=== PATIENT | male | born 1960 | race Two or more races ===

== ENCOUNTER 2024-02-23 13:49 | Outpatient (AMB) | payer OTHER, SELFPAY ==
--- NOTE | 2024-02-23 13:51 | MHC.OFFVIS ---
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 He is a patient of . He is seen for the following urologic conditions - elevated PSA - left testicular pain Free and total PSA was checked by PCP Based on low free PSA % recommend prostate biopsy PSA 01/03 9 11% Left testicle Examined Pain is in groin at rectus insertion Reassurance provided [facility] Medical History (Updated 02/23/24 @ 14:12 by Rock Martin MD) Left testicular pain BPH associated with nocturia Mixed hyperlipidemia HTN (hypertension) Family History Other Diabetes mellitus HTN (hypertension) Kidney disease Social History Alcohol intake: never Patient Tobacco Use Status: Never used Tobacco Review of Systems Const Denies chills and Denies fever(s) Card Reports no additional complaints and Denies syncope Resp Denies cough GI Denies abdominal pain and Denies heartburn Reports as per HPI and Denies change in libido Neuro Denies syncope Psych Denies change in libido Endo Denies change in libido Physical Exam Const General: cooperative, healthy appearing, comfortable and no acute distress Orientation/consciousness: patient oriented x3 HEENT Face and sinus: Yes normal facial exam Mouth: moist mucous membranes Neck Neck: Yes normal visual inspection, Yes full ROM and Yes trachea midline Chest Chest palpation & inspection: normal inspection of the chest Resp Effort & Inspection: normal respiratory effort, able to speak in complete sentences and no respiratory distress GI Inspection: Yes normal to inspection Back/Spine/Pelvis Cervical Spine: normal cervical lordosis Thoracic/Lumbar Spine: thoracic and lumbar spine normal to inspection Skin General skin exam: no rashes or lesions noted Neuro General: patient oriented x3, gait normal, tone normal and moves all extremities Extrem General: Yes normal to inspection and Yes capillary refill normal Assessment & Plan Assessment & Plan (1) Elevated PSA: Code(s): R97.20 - Elevated prostate specific antigen [PSA] Category: Medical (2) Left testicular pain: Code(s): N50.812 - Left testicular pain Category: Medical Plan Risks and benefits regarding trans rectal ultrasound with prostate biopsy were discussed. Options of continued surveillance, no treatment and biopsy were offered. The risks include but are not limited to, urinary tract infection, sepsis, difficulty urinating, bleeding into the rectum or bladder that requires intervention and transfusion,and failure to diagnose prostate cancer. The patient understands the options and the risks involved. They wish to proceed. Printed information was provided to ensure he remains off anticoagulation for the appropriate length of time. He may require cardiology or PCP clearance. An antibiotic will be administered prior to, and following the procedure Medications: New ciprofloxacin HCl Take tablets day before, day of and day after biopsy 250 mg PO ONCE 3 days 3 tabs 0RF R97.20 - Elevated prostate specific antigen [PSA] Patient Instructions: Imaging studies, laboratory and physical exam results were discussed and reviewed in detail. No major barriers to patient understanding were identified. An opportunity to ask questions regarding the treatment plan was provided. All questions were answered. The patient expressed understanding and agreement with the above treatment plan. The patient is aware they should contact our office by phone for worsening of their current condition or the appearance of new urologic symptoms. Compliance is encouraged with any medications and followup testing that is ordered. It is a privilege to participate in the urologic care of your patient. If you have any questions or concerns regarding treatment for the above conditions, or other urologic issues, please do not hesitate to contact me. The office telephone contact is [phone]. This note is constructed using voice recognition software. While every effort has been made to ensure accuracy entry level staff accountant errors may have been included. Yours sincerely, Dr Rock Martin MD, [facility] - Urology Providers of Expert, Compassionate Care for the Genitourinary System Coding Level of Care Code New Pt Level 4 (94144) Diagnoses Elevated PSA R97.20 Left testicular pain N50.812
== END 2024-02-23 14:13 | disposition home or self-care (01) ==
PROVIDERS: PCP Nurse Practitioner Family; Visit Provider Urology
DX: R97.20 Elevated prostate specific antigen [PSA] (principal); N50.812 Left testicular pain
CPT/HCPCS: 99204

== ENCOUNTER → 2024-02-23 13:49 | Outpatient (BNVA) | payer OTHER, SELFPAY | PROVIDERS: PCP Nurse Practitioner Family; Visit Provider Urology | DX: R97.20 Elevated prostate specific antigen [PSA] (principal); N50.812 Left testicular pain | CPT/HCPCS: 99202 ==

== ENCOUNTER 2024-03-15 07:41 | Outpatient (REF) | payer OTHER, SELFPAY ==
[2024-03-15] MEDS: Lidocaine HCl 1 % MPF 5 ML VIAL 10 ML SUBCUT (09:12)
--- NOTE | 2024-03-15 13:52 | P.OP_ITS ---
Operative Note Operative Note Date of Service: 03/15/24 Narrative: Preoperative diagnosis: Elevated PSA Postoperative diagnosis: Elevated PSA Procedure: 1. transrectal ultrasound measurement of prostate 2. transrectal ultrasound-guided pudendal nerve block 3. transrectal ultrasound-guided prostate biopsy 12 core Surgeon: Dr. Rock Martin Anesthetic: 10cc 1% lidocaine Indications for procedure: Elevated PSA Counselling: Technical aspects, risks and benefits of proposed procedure were discussed in full. All questions have been answered, written consent has been obtained and patient agrees to proceed. Procedure: The patient was brought into the procedure area and placed in a left lateral decubitus position. Patient identity confirmed. Perioperative antibiotics confirmed. Safety pause time out performed. KLEBER was performed to dilate rectal sphincter Iodine 10cc with 60 cc gel was placed per rectum to reduce infection risk using a catheter tip syringe. 8 Hz Nicole rectal end-fire ultrasound probe was placed transrectally without difficulty. The prostate was visualized. Seminal vesicles were normal. Prostate margins were clearly demarcated. Bladder was seen superiorly. No cystic structures were noted Small calcifications were noted at the surgical margin The prostate was otherwise heterogenous in nature The prostate was measured in 3 dimensions Prostatic Width: 5.6 cm Prostatic Height: 4.2 cm Urethral Length: 4.6 cm Total volume equals : 60 ml An ultrasound-guided pudendal nerve block was performed using a 22 gauge spinal needle in the sagittal plane. 4 cc of 1% lidocaine placed at the junction of each seminal vesicle and 2 cc placed at the apex of the prostate. A 12 core biopsy was performed with 6 cores each side using an 18 gauge prostate biopsy gun. Two cores each were taken at the prostate apex, mid and base on each side. Cores were spaced between lateral and medial aspects. Each core was examined as placed on specimen foam as part of fiberglass quality technician to ensure a minimum 1 cm of length and minimal discontinuity. He tolerated the procedure well with minimal rectal bleeding. Blood pressure remained stable following procedure. He was able to ambulate to bathroom after 5 minutes. Printed instructions regarding antibiotic use and common adverse events from the procedure such as low-grade temperature, potential infection and bleeding were given. He understands to call the office or go to an emergency room should any of these events arise. Pathology: 12 core prostate biopsy. CPT code 55517: Transrectal ultrasound; this is a diagnostic test for evaluation of the prostate and surrounding structures, looking for abnormalities or suspicious areas worrisome for cancer CPT code 65107: Biopsy, prostate; needle or punch, single or multiple, any approach CPT code 09391: Ultrasonic guidance for needle placement (eg, biopsy, aspiration, injection, localization device), imaging supervision and interpretation
== END 2024-03-15 07:42 | disposition home or self-care (01) ==
LOC: HO.US 07:41
PROVIDERS: PCP Nurse Practitioner Family; Visit Provider Urology
DX: R97.20 Elevated prostate specific antigen [PSA] (principal)
CPT/HCPCS: 55700; 76942; 88305; J2003

== ENCOUNTER → 2024-03-15 07:41 | Outpatient (BNV) | payer OTHER, SELFPAY | PROVIDERS: PCP Nurse Practitioner Family; Visit Provider Urology | DX: R97.20 Elevated prostate specific antigen [PSA] (principal) | CPT/HCPCS: 55700; 76872; 76942 ==

== ENCOUNTER 2024-04-04 14:33 | Outpatient (AMB) | payer OTHER, SELFPAY ==
--- NOTE | 2024-04-04 14:34 | A.OFFVIS_ITS ---
Intake Visit Reasons: Prostate biopsy results Intake Note: Patient is present for Telephone Biopsy Results Urology Med:None Antibiotic Allergy:None Blood Thinner:None Last PSA: 01/25/2024 PSA: 9.0 Logistics Operations Manager Required: Yes Logistics Operations Manager Language: Farm Products Shipper Services: Logistics Operations Manager Present Accompanied by: Self / Same As Patient Allergies No Known Allergies Allergy (Verified 04/04/24 14:34) HPI Comments Details: Umair is a Congolese-speaking male. He is a patient of . He is seen for the following urologic conditions - elevated PSA - left testicular pain Telemedicine Evaluation 15 min Consultation [employer] Jorgito Video Free and total PSA was checked by PCP Based on low free PSA % recommend prostate biopsy PSA 01/03 9 11% Prostate Biopsy 04/05 No cancer found Start finasteride 6m f/u labs Left testicle Examined Pain is in groin at rectus insertion Reassurance provided COUNT INCLUDES [facility] Medical History (Updated 04/04/24 @ 14:55 by Rock Martin MD) Left testicular pain BPH associated with nocturia Mixed hyperlipidemia HTN (hypertension) Family History Other Diabetes mellitus HTN (hypertension) Kidney disease Social History Alcohol intake: never Patient Tobacco Use Status: Never used Tobacco Review of Systems Const All systems reviewed & are unremarkable except as noted in HPI and below Reports no additional complaints Resp Reports no additional complaints GI Reports no additional complaints Reports as per HPI Musc Reports no additional complaints Physical Exam Telemedicine evaluation Appropriate responses Regular breathing rate and rhythm HEENT Head: Yes normal to inspection Ears: hearing grossly normal bilaterally Eyes General: appearance normal, both eyes and all related structures Neck Neck: Yes normal visual inspection Chest Chest palpation & inspection: normal inspection of the chest Resp Effort & Inspection: normal respiratory effort and able to speak in complete sentences Telehealth Telehealth Telehealth Platform: [employer] Location of provider rendering services: practice address Location of patient: address on file Patient Identification confirmed using: Name, : Yes Telehealth method: video Patient verbally consented to treatment: Yes Patient verbally consented to billing insurance company: Yes Patient informed of any privacy concerns related to visit: Yes Minutes spent on Phone/Video with Pt.: 15 Assessment & Plan Assessment & Plan (1) Elevated PSA: Code(s): R97.20 - Elevated prostate specific antigen [PSA] Category: Medical (2) BPH associated with nocturia: Code(s): N40.1 - Benign prostatic hyperplasia with lower urinary tract symptoms; R35.1 - Nocturia Category: Medical Plan Start finasteride Six-month follow-up Orders: Orders PSA,Total (Free>4and<10) 6 Months R97.20 - Elevated prostate specific antigen [PSA] Medications: New finasteride 5 mg PO DAILY 90 days 90 tabs 1RF N13.8 - Other obstructive and reflux uropathy, N40.1 - Benign prostatic hyperplasia with lower urinary tract symptoms, R33.9 - Retention of urine, unspecified, R97.20 - Elevated prostate specific antigen [PSA] Patient Instructions: Imaging studies, laboratory and physical exam results were discussed and reviewed in detail. No major barriers to patient understanding were identified. An opportunity to ask questions regarding the treatment plan was provided. All questions were answered. The patient expressed understanding and agreement with the above treatment plan. The patient is aware they should contact our office by phone for worsening of their current condition or the appearance of new urologic symptoms. Compliance is encouraged with any medications and followup testing that is ordered. It is a privilege to participate in the urologic care of your patient. If you have any questions or concerns regarding treatment for the above conditions, or other urologic issues, please do not hesitate to contact me. The office telephone contact is [phone]. This note is constructed using voice recognition software. While every effort has been made to ensure accuracy gas scrubber operator errors may have been included. Yours sincerely, Dr Rock Martin MD, [facility] - Urology Providers of Expert, Compassionate Care for the Genitourinary System Coding Level of Care Code Tele Est Pt Level 4 (06442) Diagnoses Elevated PSA R97.20 BPH associated with nocturia N40.1; R35.1
== END 2024-04-04 15:02 | disposition home or self-care (01) ==
LOC: HO.HUSH 14:33
PROVIDERS: PCP Nurse Practitioner Family; Visit Provider Urology
DX: R97.20 Elevated prostate specific antigen [PSA] (principal); N40.1 Benign prostatic hyperplasia with lower urinary tract symptoms; R35.1 Nocturia
CPT/HCPCS: 99214

== ENCOUNTER → 2024-04-04 14:33 | Outpatient (BNVA) | payer OTHER, SELFPAY | PROVIDERS: PCP Nurse Practitioner Family; Visit Provider Urology ==

== ENCOUNTER 2024-10-22 09:02 | Outpatient (REF) | payer OTHER, SELFPAY ==
--- OUTSIDE RECORDS SUMMARY | 2024-10-22 09:10 | XMS_ITS | Clinical Summary ---
Author Organization [facility] Address [address] [place] [address] Care Team Providers Care Welfare Eligibility Worker Name Role Phone Tiffanie Garces [facility] Primary Care Provider [phone] Source Comments PLEASE NOTE, if this patient is a minor, it may be UNLAWFUL to discuss sensitive information that is contained in these records (such as FAMILY PLANNING, MENTAL HEALTH or SUBSTANCE ABUSE) with the minor patient's parent or other person without the patient's specific authorization.[facility] Allergies No known active allergies Medications triamcinolone (KENALOG) 0.1 % ointmentIndication s:Seborrheic keratosis Apply topically 2 (two) times daily To scalp. 30 g 1 4 Active tamsulosin (FLOMAX) 0.4 mg 24 hr capsule Take 1 Capsule by mouth once daily 90 Capsule 4 Active atorvastatin (LIPITOR) 80 mg tabletIndications: Mixed hyperlipidemia Take 1 Tablet by mouth once daily 90 Tablet 4 Active bisoprolol fumarate (ZEBETA) 10 mg tabletIndications: Essential hypertension TAKE ONE TABLET BY MOUTH EVERY DAY 90 Tablet 1 4 Active amLODIPine (NORVASC) 10 mg tabletIndications: Essential hypertension TAKE ONE TABLET BY MOUTH EVERY DAY 30 Tablet 5 Active Active Problems Problem Noted Date Diagnosed Date Benign prostatic hyperplasia with nocturia 08/27 Primary osteoarthritis of both hands 08/27/2022 Class 1 obesity due to exces s calories with serious comorbidity and body mass index (BMI) of 32.0 to 32.9 in adult 08/27/2022 Essential hypertension 09/28/2018 Chronic left-sided low back pain without sciatic a 09/28/2018 Combined hyperlipidemia 09/28/2018 Immunizations Immunization Administration Dates Next Due MODERNA COVID-19 VACCINE BIV ALENT, BLUE CAP, 6M+ 08/27/2022 Moderna COVID-19 Vaccine, re d cap blue label, 12+ Primary Series 05/26/2021,10/20/2020,09/20/2020 TDAP 01/25/2024 ZOSTER VACCINE, RECOMBINANT (SHINGRIX) 3,08/27/2022 Family History Medical History Relation Name Comments Diabetes Brother Kidney disease Father No Known Problems Maternal Grandfather No Known Problems Maternal Grandmother Hypertension Mother No Known Problems Paternal Grandfather No Known Problems Paternal Grandmother Relation Name Status Comments Brother Alive Father Maternal Grandfather Maternal Grandmother Mother Alive Paternal Grandfather Paternal Grandmother Sister Alive Social History Tobacco Use Types Packs/Day Years Used Date Smoking Tobacco: Never Smokeless Tobacco: Never Tobacco Cessation:Counseling Given: Yes Alcohol Use Standard Drinks/Week Comments No 0 (1 standard drink = 0.6 oz pur e alcohol) Social Connections Answer Date Recorded Connectedness 0 02/24/2024 Financial Resource Strain Answer Date R ecorded Financial Resource Strain 0 2018 Stress Answer Date Recorded Stress 0 02/05/2019 Physical Activity Answer Date Recorded Physical Activity 0 02/05/2019 Food Insecurity Answer Date Recorded Food 0 03/08/2024 Transportation Needs Answer Date Record ed Transportation 0 02/05/2019 Housing Stability Answer Date Recorded Housing 0 02/05/2019 Safety and Environment Answer Date Jasvir rded Safety 0 02/05/2019 Utilities Answer Date Recorded Utilities 0 02/05/2019 Employment Answer Date Recorded Stress 0 02/24/2024 Sex and Gender Information Value Date Recorded Sex Assigned at Male 09/26/2018 10:55 AM PDT Legal Sex Male 6:57 AM PST Gender Identity Male 09/26/2018 10:55 AM PDT Sexual Orientation Straight 09/26/2018 10 :55 AM PDT 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 on file Not on file Not on file Last Filed Vital Signs Vital Sign Reading Time Taken Comments Blood Pressure 131/79 07/18/2024 1:05 PM EST Pulse 75 07/18/2024 1:05 PM EST Temperature 36.9 ??C (98.4 ??F) 01/25/2024 4:11 PM ED T Respiratory Rate 16 01/25/2024 4:11 PM EDT Oxygen Saturation 98% 01/25/2024 4:11 PM EDT Inhaled Oxygen Concentration - - Weight 82.1 kg (181 lb) 01/25/2024 4:11 PM EDT Height 157.5 cm (5' 2 ) 01/25/2024 4:11 PM EDT Body Mass Index 33.11 01/25/2024 4:11 PM EDT Plan of Treatment Upcoming Encounters Date Type Department Care Team (Late st Contact Info) Description 11/12/2024 9:00 AM EDT Office Visit [address] [phone] Suzanne Walker, [facility] [address] [place] [address] Health Maintenance Due Date Last Done Comments Anxiety Screening [address] CT Colonography 2006 Fecal DNA 2006 Flexible Sigmoidoscopy 2006 FIT/gFOBT 02/17/2020 02/16/2019 [id number]-31 ( season) 2024 08/27/2022, 05/26/2021, 10/20/2020, Additional history exists Imm-Influenza (#1) 2024 Alcohol and Drug Screen 06/13/2024 01/25/20 24, 08/27/2022, 09/26/2018 Depression Annual Screen 06/13/2024 01/25/2024 Annual Preventive Care Visit 01/24/2025 01/25/2024, 09/26/2018 Diabetes Screening 01/24/2025 01/25/2024, 0 01/25/2024, 08/27/2022, Additional history exists Lipid Screening 01/24/2025 01/25/2024, 08/11, 06/11/2020, Additional history exists Tobacco Screening 01/24/2025 01/25/2024 Dental BW 04/28/2025 04/26/2024 Dental Examination 04/28/2025 04/26/2024 Dental Prophy 04/28/2025 04/26/2024 Dental Perio Charting 07/20/2025 07/18/2024, 024 Dental FMX/Pano 04/28/2029 04/26/2024 Imm-DTaP/Tdap/Td (2 - Td or Tdap) 01/24/2034 024 Colonoscopy 07/05/2034 07/05/2024 Colorectal Cancer Screening 07/05/2034 HIV Screening Completed 09/29/2018 Hepatitis C Screening Completed 09/29/2018 Imm-Zoster, Recombinant Completed 10/28/2022, 08/27 Procedures Procedure Name Priority Date/Time Associated Diagnosis Comments HISTORIC COLONOSCOPY 07/05/2024 3:00 AM EST COMP PERIODONTAL EVALUATION - NEW/EST PATIENT Routine 04/26/2024 1:00 PM EST Encounter for dental examination INTRAORAL - COMP SERIES OF RADIOGRAPHIC IMAGES Routine 04/26/2024 1:00 PM EST Encounter for dental examination PROPHYLAXIS - ADULT Routine 04/26/2024 1 :00 PM EST Encounter for dental examination PERIODIC ORAL EVALUATION ESTABLISHED PATIENT Routine 04/26/2024 1:00 PM EST Encounter for dental examination COMPREHENSIVE METABOLIC PANEL Routine 01/25/2024 4:50 PM EDT Routine general medical examination at a health care facility Essential hypertension Combined hyperlipidemia Benign prostatic hyperplasia with nocturia LIPID PANEL Routine 01/25/2024 4:50 PM EDT Routine general medical examination at a health care facility Essential hypertension Combined hyperlipidemia Benign prostatic hyperplasia with nocturia FECAL OCCULT BLOOD HEMOCCULT X3, CHRIS YASH (POCT) Routine 02/16/2019 3:27 PM EDT Essential hypertension ANTIBODY HIV-1&HIV-2 SINGLE RESULT Routine 09/29/2018 8:55 AM EDT Routine general medical examination at a health care facility HEPATITIS A,B,C PANEL Routine 09/29/2018 8:55 AM EDT Routine general medical examination at a health care facility from Last 3 Months or Most Recently Relevant to Health Maintenance Results * HISTORIC COLONOSCOPY (07/05/2024 3:00 AM EST) 07/05/2024 3:00 AM EST Tiffanie Garces [facility] LAT[facility] OPERATOR PROCEDURES Final Result * (ABNORMAL) LIPID PANEL (01/25/2024 4:50 PM EDT) CHOLESTEROL, TOTAL 192 <200 mg/dL [facility] HDL CHOLESTEROL 43 > OR = 40 mg/dL [facility] TRIGLYCERIDES 91 <150 mg/dL [facility] LDL-CHOLESTEROL 130(H) 99 mg/dL (calc) [facility] Comment: Reference range: <100 Desirable range <100 mg/dL for primary prevention; ?? <70 mg/dL for patients with CHD or diabetic patients with > or = 2 CHD risk factors. LDL-C is now calculated using the Zeyad calculation, which is a validated novel method providing better accuracy than the Friedewald equation in the estimation of LDL-C. Ryan SS et al. ABIMAEL. 2013;310(19): 5016-6211 (http://education.Scrip-t/faq/ZDT823) CHOL/HDLC RATIO 4.5 <5.0 (calc) [facility] NON-HDL CHOLESTEROL 149(H) <130 mg/dL (calc) [facility] Comment: For patients with diabetes plus 1 major ASCVD risk factor, treating to a non-HDL-C goal of <100 mg/dL (LDL-C of <70 mg/dL) is considered a therapeutic option. Blood Blood / Unknown 01/25/2024 4 :50 PM EDT 01/25/2024 4:51 PM EDT Narrative [facility] - 01/27/2024 8:32 AM EDT SPECIMEN COLLECTED AT PROVIDER OFFICE. us Tiffanie Garces [facility] LAB - BLOOD DRAW Final Result [facility] [address] [place] [id number], [facility] [address] [address] * (ABNORMAL) COMPREHENSIVE METABOLIC PANEL (01/25/2024 4:50 PM EDT) GLUCOSE 101(H) 65 - 99 mg/dL [facility] Comment: ?Fasting reference interval For someone without known diabetes, a glucose value between 100 and 125 mg/dL is consistent with prediabetes and should be confirmed with a follow-up test. UREA NITROGEN (BUN) 12 7 - 25 mg/dL [facility] CREATININE (blood) 0.93 0.70 - 1.35 mg/dL [facility] EGFR 93 > OR = 60 mL/min/1. 73m2 [facility] BUN/CREATININE RATIO SEE NOTE: [facility] Comment: ?? Not Reported: BUN and Creatinine are within ?? reference range. ? SODIUM 140 135 - 146 mmol/L [facility] POTASSIUM 3.7 3.5 - 5.3 mmol/L [facility] CHLORIDE 104 98 - 110 mmol/L [facility] CARBON DIOXIDE 28 20 - 32 mmol/L [facility] CALCIUM 9.8 8.6 - 10.3 mg/dL [facility] PROTEIN, TOTAL 7.6 6.1 - 8.1 g/dL [facility] ALBUMIN 4.1 3.6 - 5.1 g/dL [facility] GLOBULIN 3.5 1.9 - 3.7 g/dL (calc) [facility] ALBUMIN/GLOBULI N RATIO 1.2 1.0 - 2.5 (calc) [facility] BILIRUBIN, TOTAL 0.7 0.2 - 1.2 mg/dL [facility] ALKALINE PHOSPHATASE 84 35 - 144 U/L [facility] AST 16 10 - 35 U/L [facility] ALT 28 9 - 46 U/L [facility] Blood Blood / Unknown 01/25/2024 4 :50 PM EDT 01/25/2024 4:51 PM EDT Narrative [facility] - 01/27/2024 8:32 AM EDT SPECIMEN COLLECTED AT PROVIDER OFFICE. Tiffanie Garces [facility] LAB - BLOOD DRAW Edited Result - Final [facility] [address] [address], [facility] [address] [address] * FECAL OCCULT BLOOD HEMOCCULT X3, CHRIS YASH (POCT) (02/16/2019 3:27 PM EDT) FECAL OCCULT BLOOD NEGATIVE NEGATIVE [facility] POCT FECAL OCCULT BLOOD #2 NEGATIVE NEGATIVE [facility] POCT FECAL OCCULT BLOOD #3 NEGATIVE NEGATIVE [facility] POCT Stool specimen (specimen) Stool specimen / Unknown 02/16/2019 3:27 PM EDT Tiffanie Hernandeznallely [facility] OPERATOR LAB - BLOOD DRAW Final Result [facility] POCT * (ABNORMAL) HEPATITIS A,B,C PANEL (09/29/2018 8:55 AM EDT) HEPATITIS B SURFACE ANTIBODY NEGATIVE NEGATIVE [facility] HEPATITIS B SURFACE ANTIGEN NEGATIVE NEGATIVE [facility] Comment: Over the counter supplements containing high doses of biotin may interfere with this assay. ??If interference is suspected, patients shoud be retested after refraining from biotin supplements for 72 hours. HEPATITIS C VIRUS DIAGNOSTIC NEGATIVE NEGATIVE [facility] HEPATITIS B CORE ANTIBODY NEGATIVE NEGATIVE [facility] HEPATITIS A ANTIBODY TOTAL POSITIVE(A) NEGATIVE [facility] Comment: Over the counter supplements containing high doses of biotin may interfere with this assay. ??If interference is suspected, patients shoud be retested after refraining from biotin supplements for 72 hours. Blood specimen (specimen) Blood / Unknown 09/29/2018 8:55 AM EDT 09/29/2018 9:09 AM EDT Narrative [facility] - 09/29/2018 12:23 PM EDT [employer], a member of [address] [address] Television [employer] Teacher - Jessica Romero MD [place] ID [id number] ORD# [id number] Samantha Joshua [facility] OPER[facility] LAB - BLOOD DRAW Edite d Result - Final [address] [address], [place] [phone] * HIV-1 & HIV-2 ANTIBODIES (09/29/2018 8:55 AM EDT) [facility] HIV 1 AND 2 ANTIBODY SCREEN NEGATIVE NEGATIVE [facility] Comment: This assay is a 4th generation assay allowing for earlier detection of HIV infection by detecting the presence of the HIV-1 p24 antigen as well as the traditional antibodies to HIV type 1 (including group O) and type 2. ??Use of a 4th generation assay is the current CDC recommendation for HIV screening. Blood specimen (specimen) Blood / Unknown 09/29/2018 8:55 AM EDT 09/29/2018 9:09 AM EDT Narrative [facility] - 09/29/2018 12:52 PM EDT [employer], a member of [address] [address] Television Repair Teacher - Jessica Romero MD PT ID [id number] ORD# [id number] Samantha Josiane BAT LAT[facility] OPERATOR LAB - BLOOD DRAW Final Result Performing Organization Address City/[facility] Co de Phone Number [address] [address], [place] [phone] from Last 3 Months or Most Recently Relevant to Health Maintenance Insurance [employer] [address] [employer] Member Subscriber Plan / Payer (Ef fective 2024-Present) Name:Umair Swan Relation to Subscriber:Self Name:Umair Swan Payer ID:[id number] Type:Indemnity Address: [address] [address] [place] [address] [facility] [facility] Care Teams Welfare Eligibility Worker Relationship Specialty Start Date End Date Tiffanie Garces FNP [address] [place] [id number] PCP - General Internal Medicine 09/01/18
[2024-10-22 10:24] LABS: PSA,Total (Free>4and<10) 0.82 ng/mL (0.00-4.00)
== END 2024-10-22 09:03 | disposition home or self-care (01) ==
LOC: HO.LAB 09:02
PROVIDERS: Visit Provider Urology
DX: R97.20 Elevated prostate specific antigen [PSA] (principal)
CPT/HCPCS: 36415; 84153

== ENCOUNTER 2024-11-01 09:42 | Outpatient (AMB) | payer OTHER, SELFPAY ==
--- NOTE | 2024-11-01 09:46 | A.OFFVIS_ITS ---
Intake Visit Reasons: 6m/PSA Intake Note: Patient is present for 6M/PSA Urology Medication:FINASTERIDE Antibiotic Allergy:NONE Blood Thinner:NONE Au Pair Required: No Allergies No Known Allergies Allergy (Verified 11/01/24 09:46) HPI Comments Details: Umair is a [place]-speaking male. He is a patient of . He is seen for the following urologic conditions - elevated PSA - left testicular pain [place] translation provided by qualified medical office specialist PSA has dropped like a stone Currently 0.8 Cut back to Tuesday, Tuesday, Tuesday Elevated PSA Free and total PSA was checked by PCP Based on low free PSA % recommend prostate biopsy PSA 01/03 9 11%, 11/04 0.8 Prostate Biopsy 04/05 No cancer found Left testicle Examined Pain is in groin at rectus insertion Reassurance provided [facility] Medical History (Updated 04/04/24 @ 14:55 by Rock Martin MD) Left testicular pain BPH associated with nocturia Mixed hyperlipidemia HTN (hypertension) Family History Other Diabetes mellitus HTN (hypertension) Kidney disease Social History Alcohol intake: never Patient Tobacco Use Status: Never used Tobacco Review of Systems Const Denies chills and Denies fever(s) Card Reports no additional complaints and Denies syncope Resp Denies cough GI Denies abdominal pain and Denies heartburn Reports as per HPI and Denies change in libido Neuro Denies syncope Psych Denies change in libido Endo Denies change in libido Physical Exam Const General: cooperative, healthy appearing, comfortable and no acute distress Orientation/consciousness: patient oriented x3 HEENT Face and sinus: Yes normal facial exam Mouth: moist mucous membranes Neck Neck: Yes normal visual inspection, Yes full ROM and Yes trachea midline Chest Chest palpation & inspection: normal inspection of the chest Resp Effort & Inspection: normal respiratory effort, able to speak in complete sentences and no respiratory distress GI Inspection: Yes normal to inspection Back/Spine/Pelvis Cervical Spine: normal cervical lordosis Thoracic/Lumbar Spine: thoracic and lumbar spine normal to inspection Skin General skin exam: no rashes or lesions noted Neuro General: patient oriented x3, gait normal, tone normal and moves all extremities Extrem General: Yes normal to inspection and Yes capillary refill normal Assessment & Plan Assessment & Plan (1) BPH associated with nocturia: Code(s): N40.1 - Benign prostatic hyperplasia with lower urinary tract symptoms; R35.1 - Nocturia Category: Medical (2) Elevated PSA: Code(s): R97.20 - Elevated prostate specific antigen [PSA] Category: Medical Plan Continue finasteride Twelve month follow-up Orders: Orders Prostate Specific Antigen 12 Months N40.1 - Benign prostatic hyperplasia with lower urinary tract symptoms, R35.1 - Nocturia Patient Instructions: This note is constructed using voice recognition software. While every effort has been made to ensure accuracy media promoter errors may have been included. Imaging studies, laboratory and physical exam results were discussed and reviewed in detail. No major barriers to patient understanding were identified. An opportunity to ask questions regarding the treatment plan was provided. All questions were answered. The patient expressed understanding and agreement with the above treatment plan. The patient is aware they should contact our office by phone for worsening of their current condition or the appearance of new urologic symptoms. Compliance is encouraged with any medications and followup testing that is ordered. It is a privilege to participate in the urologic care of your patient. If you have any questions or concerns regarding treatment for the above conditions, or other urologic issues, please do not hesitate to contact me. The office telephone contact is [phone]. Sincerely, Dr Rock Martin MD, [facility] [place] - Urology Compassionate Specialist Care for the Genitourinary System Coding Level of Care Code Est Pt Level 3 (73994) Diagnoses BPH associated with nocturia N40.1; R35.1 Elevated PSA R97.20
--- OUTSIDE RECORDS SUMMARY | 2024-11-01 10:03 | XMS_ITS | Clinical Summary ---
Author Organization [facility] Address [address] [place] [address] Phone Care Team Providers Care Skull Chopper Name Role Phone Tiffanie pedersen NAV Primary Care Provider [phone] Allergies No known active allergies Medications bisacodyL (DULCOLAX) 5 mg EC tablet Take 2 tablets by mouth right before beginning bowel prep. See instructions provided by the office 2 tablet 5 Active polyethylene glycol (Golytely) 236-22.74-6.74 -5.86 gram solution Take 4L by mouth once for one dose. May substitue any PEG. Starting at 6PM the night before your procedure drink 1 8oz glasses at your own pace until you complete half of the gallon. Finish 2nd half of the gallon 5 hours before your procedure. 4000 mL 5 Active atorvastatin (LIPITOR) 80 mg tablet Take 1 tablet (80 mg total) by mouth 1 (one) time each day. Active bisoprolol (ZEBETA) 10 mg tablet Take 1 tablet (10 mg total) by mouth daily. 4 Active amLODIPine (NORVASC) 10 mg tablet Take 1 tablet (10 mg total) by mouth daily. 4 Active finasteride (PROSCAR) 5 mg tablet 1 tablet (5 mg total). 4 Active Surgical History Surgery Date Site/Laterality Comments COLONOSCOPY Medical History Medical History Date Comments Hypertension Hyperlipidemia Social History Tobacco Use Types Packs/Day Years Used Date Smoking Tobacco: Never Smokeless Tobacco: Never Tobacco Cessation:Counseling Given: Not Answered Alcohol Use Standard Drinks/Week Comments Never 0 (1 standard drink = 0.6 oz pur e alcohol) Interpersonal Safety Answer Date Record ed Physical Abuse 07/05/2024 Verbal Abuse 07/05/2024 Sex and Gender Information Value Date Recorded Sex Assigned at Not on file Legal Sex Male 2:08 AM EST Gender Identity Not on file Sexual Orientation Not on file Obstetrics History Last Filed Vital Signs Vital Sign Reading Time Taken Comments Blood Pressure 110/75 07/05/2024 1:38 PM EST Pulse 76 07/05/2024 1:38 PM EST Temperature 36.9 ??C (98.5 ??F) 07/05/2024 1:29 PM ES T Respiratory Rate 18 07/05/2024 1:38 PM EST Oxygen Saturation 99% 07/05/2024 1:38 PM EST Inhaled Oxygen Concentration - - Weight 77.1 kg (170 lb) 07/05/2024 12:46 PM EST Height 167.6 cm (5' 6 ) 07/05/2024 12:46 PM EST Body Mass Index 27.44 07/05/2024 12:46 PM EST Plan of Treatment Health Maintenance Due Date Last Done Comments Pneumococcal Vaccine: 50+ Years (1 of 1 - PCV) 12/18/2011 Hepatitis C Screening 07/13/2023 Social Influencers of Health Screening 07/13/2023 COVID-19 Vaccine ( season) 2024 08/27/2022, 05/26/2021, 10/20/2020, Additional history exists Depression Screening 01/24/2025 01/25/2024 Hypertension/CHF/CAD Annual BMP Blood Test 01/24/2025 01/25/2024 Influenza Vaccine (Season Ended) 2025 Colorectal Cancer Screening: Colonoscopy 07/05/2027 07/05/2024 Cholesterol Screening (Lipid Panel) 01/24/2029 01/25/2024, 01/25/2024, 06/11/2020, Additional history exists DTaP,Tdap,and Td Vaccines (2 - Td or Tdap) 01/24/2034 01/25/2024 RSV Immunization Adult Patients (1 - 1-dose 75+ series) 2036 HIV Screening Completed 09/29/2018 Zoster Vaccines Completed 10/28/2022, 08/27/2022 HIB Vaccines Aged Out No longer eligi ble based on patient's age to complete this topic HPV Vaccines Aged Out No longer eligi ble based on patient's age to complete this topic Hepatitis A Vaccines Aged Out No long er eligible based on patient's age to complete this topic Hepatitis B Vaccines Aged Out No long er eligible based on patient's age to complete this topic IPV Vaccines Aged Out No longer eligi ble based on patient's age to complete this topic MMR Vaccines Aged Out No longer eligi ble based on patient's age to complete this topic Meningococcal ACWY Vaccine Aged Out N o longer eligible based on patient's age to complete this topic Meningococcal B Vaccine Aged Out No l onger eligible based on patient's age to complete this topic Pneumococcal Vaccine: Pediatrics (0 to 5 Years) and At-Risk Patients (6 to 64 Years) Aged Out No longer eligible based on patient's age to complete this topic RSV Immunization Patients Under 20 months Aged Out No longer eligible based on patient's age to complete this topic Varicella Vaccines Aged Out No longer eligible based on patient's age to complete this topic Procedures Procedure Name Priority Date/Time Associated Diagnosis Comments COLONOSCOPY Routine 07/05/2024 1:17 PM EST Hx of colonic polyps from Last 3 Months or Most Recently Relevant to Health Maintenance Results * COLONOSCOPY Anesthesia - MAC; [facility] ENDOSCOPY (07/05/2024 1:17 PM EST) Anatomical Region Laterality Modality Endoscopy 07/05/2024 1:00 PM EST Impressions 07/05/2024 1:19 PM EST - One 14 mm polyp in the transverse colon, removed ? using injection-lift and a cold snare. Resected and ? retrieved. Clip was placed. 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. ? - The examination was otherwise normal on direct and ? retroflexion views. Recommendation: ?- Discharge patient to home. ? - Await pathology results. ? - Repeat colonoscopy for surveillance based on ? pathology results. Narrative 07/05/2024 1:19 PM EST [facility] GI Patient Name: Umair Swan Procedure Date: 07/05/2024 1:00 PM Date of : 1960 Age: 63 Gender: Male Note Status: Finalized Attending MD: Axel Garcia MD, Procedure Date No Time: 07/05/2024 Procedure: ? Colonoscopy Indications: ? High risk colon cancer surveillance: Personal history ? of colonic polyps Providers: ? Axel Garcia MD Referring MD: ?Axel Garcia MD Medicines: ? Monitored Anesthesia Care Complications: ? No immediate complications. Estimated blood loss: ? Minimal. Estimated Blood Loss: ? Estimated blood loss was minimal. Procedure: ? Pre-Anesthesia Assessment: ? - Prior to the procedure, a History and Physical was ? performed, and patient medications and allergies were ? reviewed. The patient is competent. The risks and ? benefits of the procedure and the sedation options and ? risks were discussed with the patient. All questions ? were answered and informed consent was obtained. ? Patient identification and proposed procedure were ? verified by the physician, the nurse, the douper ? and the i&c technician in the pre-procedure area in the ? procedure room. Mental Status Examination: alert and ? oriented. Airway Examination: normal oropharyngeal ? airway and neck mobility. Respiratory Examination: ? clear to auscultation. CV Examination: normal. ? Prophylactic Antibiotics: The patient does not require ? prophylactic antibiotics. Prior Anticoagulants: The ? patient has taken no anticoagulant or antiplatelet ? agents. ASA Grade Assessment: II - A patient with mild ? systemic disease. After reviewing the risks and ? benefits, the patient was deemed in satisfactory ? condition to undergo the procedure. The anesthesia ? plan was to use monitored anesthesia care (MAC). ? Immediately prior to administration of medications, ? the patient was re-assessed for adequacy to receive ? sedatives. The heart rate, respiratory rate, oxygen ? saturations, blood pressure, adequacy of pulmonary ? ventilation, and response to care were monitored ? throughout the procedure. The physical status of the ? patient was re-assessed after the procedure. ? After I obtained informed consent, the scope was ? passed under direct vision. Throughout the procedure, ? the patient's blood pressure, pulse, and oxygen ? saturations were monitored continuously. The ? Colonoscope was introduced through the anus and ? advanced to the cecum, identified by appendiceal ? orifice and ileocecal valve. The colonoscopy was ? performed without difficulty. The patient tolerated ? the procedure well. The quality of the bowel ? preparation was good. Findings: ?The perianal and digital rectal examinations were ? normal. ? A 14 mm polyp was found in the transverse colon. The ? polyp was flat and mucous-capped. The polyp was ? removed with a saline injection-lift technique using a ? cold snare. Resection and retrieval were complete. To ? prevent bleeding after the polypectomy, one hemostatic ? clip was successfully placed. 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 There was no bleeding at the end of ? the procedure. Estimated blood loss was minimal. ? The exam was otherwise without abnormality on direct ? and retroflexion views. Procedure Code(s): ? --- Professional --- ? 91997, Colonoscopy, flexible; with removal of ? tumor(s), polyp(s), or other lesion(s) by snare ? technique ? 59932, Colonoscopy, flexible; with directed submucosal ? injection(s), any substance Diagnosis Code(s): ? --- Professional --- ? D12.3, Benign neoplasm of transverse colon (hepatic ? flexure or splenic flexure) CPT copyright 2020 [employer]. All rights reserved. The codes documented in this report are preliminary and upon medical coder review may be revised to meet current compliance requirements. Axel Garcia MD 07/05/2024 1:19:34 PM This report has been signed electronically.Axel Garcia MD Number of Addenda: 0 Note Initiated On: 07/05/2024 1:00 PM Scope Withdrawal Time: 0 hours 12 minutes 0 seconds Scope In: 1:03:52 PM Scope Out: 1:17:33 PM ? Endoscopy Department at [facility] - [address] [place] [address], ? [place] [address] Procedure Note Axel Garcia MD - 07/05/2024 [facility] GI Patient Name: Umair Swan Procedure Date: 07/05/2024 1:00 PM Date of : 1960 Age: 63 Gender: Male Note Status: Finalized Attending MD: Axel Garcia MD, Procedure Date No Time: 07/05/2024 Procedure: Colonoscopy Indications: High risk colon cancer surveillance: Personalhistory of colonic polyps Providers: Axel Garcia MD Referring MD: Axel Garcia MD Medicines: Monitored Anesthesia Care Complications: No immediate complications. Estimated blood loss: Minimal. Estimated Blood Loss: Estimated blood loss was minimal. Procedure: Pre-Anesthesia Assessment: - Prior to the procedure, a History and Physicalwas performed, and patient medications and allergieswere reviewed. The patient is competent. The risks and benefits of the procedure and the sedation optionsand risks were discussed with the patient. Allquestions were answered and informed consent was obtained. Patient identification and proposed procedure were verified by the physician, the nurse, theanesthetist and the i&c technician in the pre-procedure area in the procedure room. Mental Status Examination: alertand oriented. Airway Examination: normal oropharyngeal airway and neck mobility. Respiratory Examination: clear to auscultation. CV Examination: normal. Prophylactic Antibiotics: The patient does notrequire prophylactic antibiotics. Prior Anticoagulants: The patient has taken no anticoagulant or antiplatelet agents. ASA Grade Assessment: II - A patient withmild systemic disease. After reviewing the risks and benefits, the patient was deemed in satisfactory condition to undergo the procedure. The anesthesia plan was to use monitored anesthesia care (MAC). Immediately prior to administration of medications, the patient was re-assessed for adequacy to receive sedatives. The heart rate, respiratory rate, oxygen saturations, blood pressure, adequacy of pulmonary ventilation, and response to care were monitored throughout the procedure. The physical status ofthe patient was re-assessed after the procedure. After I obtained informed consent, the scope was passed under direct vision. Throughout theprocedure, the patient's blood pressure, pulse, and oxygen saturations were monitored continuously. The Colonoscope was introduced through the anus and advanced to the cecum, identified by appendiceal orifice and ileocecal valve. The colonoscopy was performed without difficulty. The patient tolerated the procedure well. The quality of the bowel preparation was good. Findings: The perianal and digital rectal examinations were normal. A 14 mm polyp was found in the transverse colon.The polyp was flat and mucous-capped. The polyp was removed with a saline injection-lift techniqueusing a cold snare. Resection and retrieval were complete.To prevent bleeding after the polypectomy, onehemostatic clip was successfully placed. 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 There was no bleeding at the endof the procedure. Estimated blood loss was minimal. The exam was otherwise without abnormality ondirect and retroflexion views. Procedure Code(s): --- Professional --- 49178, Colonoscopy, flexible; with removal of tumor(s), polyp(s), or other lesion(s) by snare technique 70232, Colonoscopy, flexible; with directedsubmucosal injection(s), any substance Diagnosis Code(s): --- Professional --- D12.3, Benign neoplasm of transverse colon (hepatic flexure or splenic flexure) CPT copyright 2020 [employer]. All rights reserved. The codes documented in this report are preliminary and upon medical coder reviewmay be revised to meet current compliance requirements. Axel Garcia MD 07/05/2024 1:19:34 PM This report has been signed electronically.Axel Garcia MD Number of Addenda: 0 Note Initiated On: 07/05/2024 1:00 PM Scope Withdrawal Time: 0 hours 12 minutes 0 seconds Scope In: 1:03:52 PM Scope Out: 1:17:33 PM Endoscopy Department at [facility] - [address] [place] [phone] IMPRESSION: - One 14 mm polyp in the transverse colon, removed using injection-lift and a cold snare. Resected and retrieved. Clip was placed. Clip oil house attendant:Bushido. - The examination was otherwise normal on directand retroflexion views. Recommendation: - Discharge patient to home. - Await pathology results. - Repeat colonoscopy for surveillance based on pathology results. Axel Garcia MD GI~PROCEDURE ORDERABLES Fin al Result from Last 3 Months or Most Recently Relevant to Health Maintenance Insurance MEDICAID - [place] Care Teams Skull Chopper Relationship Specialty Start Date End Date Tiffanie Garces NP [address] [place] [address] PCP - General 8/15/24
--- OUTSIDE RECORDS SUMMARY | 2024-11-01 10:03 | XMS_ITS | Clinical Summary ---
Author Organization [facility] Address [address] [place] [address] Care Team Providers Care Acid Extractor Name Role Phone Tiffanie Garces [facility] Primary Care Provider [phone] Source Comments PLEASE NOTE, if this patient [...] Description 11/12/2024 9:00 AM EDT Office Visit [facility] [address] [place] [id number] Suzanne Walker, AIXA [address] [place] [address] Health Maintenance Due Date Last Done Comments Anxiety Screening 1960 CT Colonography 2006 Fecal DNA 2006 Flexible Sigmoidoscopy 2006 FIT/gFOBT 02/17/2020 02/16/2019 [id number] ( season) 2024 08/27/2022, 05/26/2021, 10/20/2020, Additional history exists Imm-Influenza (#1) 2024 Alcohol and Drug Screen 06/13/2024 01/25/20 24, 08/27/2022, 09/26/2018 Depression Annual Screen 06/13/2024 01/25/2024 Annual Wellness (Adult): Ind icated (All Coverage) 01/24/2025 01/25/2024, 09/26/2018 Diabetes Screening 01/24/2025 01/25/2024, [...] EST) 07/05/2024 3:00 AM EST Tiffanie Garces ADMINISTRATIVE PROJECT COORDINATOR PROCEDURES Final Result * (ABNORMAL) LIPID PANEL (01/25/2024 4:50 PM EDT) CHOLESTEROL, TOTAL 192 <200 mg/dL [employer] [facility] HDL CHOLESTEROL 43 > OR = 40 mg/dL [facility] TRIGLYCERIDES 91 <150 mg/dL [employer] [facility] LDL-CHOLESTEROL 130(H) 99 mg/dL (calc) [facility] Comment: Reference range: <100 Desirable range <100 mg/dL for primary prevention; ?? <70 mg/dL for patients with CHD or diabetic patients with > or = 2 CHD risk factors. LDL-C is now calculated using the Zeyad calculation, which is a validated novel method providing better accuracy than the Friedewald equation in the estimation of LDL-C. Ryan SS et al. ABIMAEL. 2013;310(19): 8675-7883 (http://education.Kitchensurfing/faq/DCH344) CHOL/HDLC RATIO 4.5 <5.0 (calc) [facility] NON-HDL CHOLESTEROL 149(H) <130 mg/dL (calc) [facility] Comment: For patients with diabetes plus 1 major ASCVD risk factor, treating to a non-HDL-C goal of <100 mg/dL (LDL-C of <70 mg/dL) is considered a therapeutic option. Blood Blood / Unknown 01/25/2024 4 :50 PM EDT 01/25/2024 4:51 PM EDT Narrative [facility] - 01/27/2024 8:32 AM EDT SPECIMEN COLLECTED AT PROVIDER OFFICE. us Tiffanie Garces ADMINISTRATIVE PROJECT COORDINATOR LAB - BLOOD DRAW Final Result [address] [place] [address], [employer] [address] [address] * (ABNORMAL) COMPREHENSIVE METABOLIC PANEL (01/25/2024 4:50 PM EDT) GLUCOSE 101(H) 65 - 99 mg/dL [facility] Comment: ?Fasting reference interval For someone without known diabetes, a glucose value between 100 and 125 mg/dL is consistent with prediabetes and should be confirmed with a follow-up test. UREA NITROGEN (BUN) 12 7 - 25 mg/dL [facility] CREATININE (blood) 0.93 0.70 - 1.35 mg/dL [facility] EGFR 93 > OR = 60 mL/min/1. 73m2 [facility] BUN/CREATININE RATIO SEE NOTE: [facility] Comment: ?? Not Reported: BUN and Creatinine are within ?? reference range. ? SODIUM 140 135 - 146 mmol/L [facility] POTASSIUM 3.7 3.5 - 5.3 mmol/L [facility] CHLORIDE 104 98 - 110 mmol/L [facility] CARBON DIOXIDE 28 20 - 32 mmol/L [facility] CALCIUM 9.8 8.6 - 10.3 mg/dL [facility] PROTEIN, TOTAL 7.6 6.1 - 8.1 g/dL [facility] ALBUMIN 4.1 3.6 - 5.1 g/dL [facility] GLOBULIN 3.5 1.9 - 3.7 g/dL (calc) [facility] ALBUMIN/GLOBULI N RATIO 1.2 1.0 - 2.5 (calc) [facility] BILIRUBIN, TOTAL 0.7 0.2 - 1.2 mg/dL [facility] ALKALINE PHOSPHATASE 84 35 - 144 U/L [facility] AST 16 10 - 35 U/L [facility] ALT 28 9 - 46 U/L [facility] Blood Blood / Unknown 01/25/2024 4 :50 PM EDT 01/25/2024 4:51 PM EDT Narrative [facility] - 01/27/2024 8:32 AM EDT SPECIMEN COLLECTED AT PROVIDER OFFICE. Tiffanie Garces ADMINISTRATIVE PROJECT COORDINATOR LAB - BLOOD DRAW Edited Result - Final [facility] [address] [address], [facility] [address] [address] * FOBT/FIT (Stool Occult Blood Test) (POCT) (02/16/2019 3:27 PM EDT) FECAL OCCULT BLOOD NEGATIVE NEGATIVE [facility] POCT FECAL OCCULT BLOOD #2 NEGATIVE NEGATIVE [facility] POCT FECAL OCCULT BLOOD #3 NEGATIVE NEGATIVE [facility] POCT Stool specimen (specimen) Stool specimen / Unknown 02/16/2019 3:27 PM EDT Tiffanie Garces ADMINISTRATIVE PROJECT COORDINATOR LAB - BLOOD DRAW Final Result [facility] POCT * (ABNORMAL) HEPATITIS A,B,C PANEL (09/29/2018 8:55 AM EDT) HEPATITIS B SURFACE ANTIBODY NEGATIVE NEGATIVE [facility] HEPATITIS B SURFACE ANTIGEN NEGATIVE NEGATIVE [facility] Comment: Over the counter supplements containing high doses of biotin may interfere with this assay. ??If interference is suspected, patients shoud be retested after refraining from biotin supplements for 72 hours. HEPATITIS C VIRUS DIAGNOSTIC NEGATIVE NEGATIVE [facility] HEPATITIS B CORE ANTIBODY NEGATIVE NEGATIVE [facility] HEPATITIS A ANTIBODY TOTAL POSITIVE(A) NEGATIVE [facility] Comment: Over the counter supplements containing high doses of biotin may interfere with this assay. ??If interference is suspected, patients shoud be retested after refraining from biotin supplements for 72 hours. Blood specimen (specimen) Blood / Unknown 09/29/2018 8:55 AM EDT 09/29/2018 9:09 AM EDT Narrative [facility] - 09/29/2018 12:23 PM EDT [employer], a member of [address] [address] [employer] T[employer] - Jessica Romero MD PT ID [id number] ORD# [id number] Samantha Joshua ADMINISTRATIVE PROJECT COORDINATOR LAB - BLOOD DRAW Edite d Result - Final [facility] [place] [address], [place] [phone] * HIV-1 & HIV-2 ANTIBODIES (09/29/2018 8:55 AM EDT) [facility] HIV 1 AND 2 ANTIBODY SCREEN NEGATIVE NEGATIVE [facility] Comment: This assay is a 4th generation [...] AM EDT 09/29/2018 9:09 AM EDT Narrative [employer] [facility] - 09/29/2018 12:52 PM EDT [employer], a member of [address] [address] [employer] T[employer] - Jessica Romero MD PT ID [id number] ORD# [id number] Samantha Joshua ADMINISTRATIVE PROJECT COORDINATOR LAB - BLOOD DRAW Final Result Performing Organization Address City/[facility] Co de Phone Number [address] [address], [place] [phone] from Last 3 Months or Most Recently Relevant to Health Maintenance Insurance [employer] [address] [employer] PL[employer] COM Member Subscriber Plan / Payer (Ef fective 2024-Present) Name:Umair Swan Relation to Subscriber:Self Name:Umair Swan Payer ID:[id number] Type:Indemnity Address: [address] [address] [place] [address] [employer] Care Teams Acid Extractor Relationship Specialty Start Date End Date Tiffanie Garces FNP [address] [place] [address] PCP - General Internal Medicine 09/01/18
== END 2024-11-01 12:15 | disposition home or self-care (01) ==
LOC: HO.HUSH 09:43
PROVIDERS: PCP Nurse Practitioner Family; Visit Provider Urology
DX: N40.1 Benign prostatic hyperplasia with lower urinary tract symptoms (principal); R35.1 Nocturia; R97.20 Elevated prostate specific antigen [PSA]
CPT/HCPCS: 99213

== ENCOUNTER → 2024-11-01 09:42 | Outpatient (BNVA) | payer OTHER, SELFPAY | PROVIDERS: PCP Nurse Practitioner Family; Visit Provider Urology | DX: N40.1 Benign prostatic hyperplasia with lower urinary tract symptoms (principal); R35.1 Nocturia; R97.20 Elevated prostate specific antigen [PSA] | CPT/HCPCS: 99212 ==